=== PATIENT | female | born 1950 | race Caucasian/White ===

== ENCOUNTER 2023-05-09 15:41 | Emergency (ER) | payer OTHER, SELFPAY ==
[2023-05-09 15:49] VITALS: BP 145/66; BMI 24.1
--- NOTE | 2023-05-09 16:02 | ED.GENMED ---
History of Present Illness
General
Chief Complaint: Crisis Evaluation
Time Seen by Provider: 05/09/23 15:48
Travel History
Have you had any contact with someone who has COVID-19?: No
Do you have any symptoms of coronavirus? Fever > 100 degrees, chills, cough, shortness of breath, sore throat, loss of taste or smell, muscle aches, or headache?: No
History of Present Illness
History of Present Illness:
HPI: Patient states that she has been having problems with anxiety and depression. She is on Abilify. She denies history of any other psychiatric diagnoses. She has been feeling suicidal recently. She is upset with her living situation with her
granddaughters and daughter. Today she had thought of harming herself and thought about killing herself by drinking antifreeze. She did not proceed with this. She currently feels improved compared to earlier in the day and she feels safer
currently. She has also had other vague symptoms over the last 6 months including general unwell feeling.
EXAM:
GENERAL: Well appearing in no distress
HEENT: Slightly dry oral mucosa
CARDIOVASCULAR: No murmurs, normal heart rate and rhythm, No chest wall tenderness
PULMONARY: No respiratory distress, breath sounds are clear and equal
ABDOMEN: Soft with no peritoneal signs, no tenderness
NEUROLOGIC: Excellent strength all extremities, no coordination deficits
PSYCHIATRIC: Appropriate mental status, normal insight and judgement
EXTREMITIES: Nontender, no edema, moves all extremities equally
SKIN: No rash, no lesions
ED COURSE:
4:15 PM: I initially evaluated patient
NUMBER AND COMPLEXITY OF PROBLEMS ADDRESSED AT THE ENCOUNTER
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
� Acute Exacerbation and/or Progression of Chronic Illness: This is an acute problem
� Differential Diagnosis includes: Suicidal ideation, depression/anxiety, ethylene glycol injection very unlikely
AMOUNT AND/OR COMPLEXITY OF DATA TO BE REVIEWED AND ANALYZED
� I performed an independent evaluation of and my interpretation is:
EKG:
CT:
X-rays:
Laboratory Studies: White count and hemoglobin are normal, chemistries unremarkable, osmolality is 294. Osmolar gap is 8 (calculated is 288).
Other:
� Review of other/old records: There are no old records available for review in [facility]
� Clinical information was obtained by an independent historian: No old records available for review in [facility]
� Prescriptions/Medications Considered but not given:
� Further testing considered but not performed:
RISK OF COMPLICATIONS AND/OR MORBIDITY OR MORTALITY OF PATIENT MANAGEMENT
� Social determinants of health affecting care: Lives at home with family
� Discussion with other providers: Discussed with [facility] at 6:08 PM�they are bed searching.
� Escalation of care including admission/observation vs risk of discharge considered: The patient came in by ambulance. She was initially seen in crisis room. Labs will be obtained. Osmolar gap reassuring therefore no evidence
for ethylene glycol ingestion. Acetaminophen, salicylate, and alcohol undetected. [facility] is bed searching for a facility to go to as of 6:08 PM. I spoke to [facility] at around 7 PM, [facility]
8:30 PM.
Phy Exam
Physical Exam
Physical Exam:
See HPI
Course
Orders/Labs/Results
Orders:
Orders
05/09/23 15:58
Case Management Consult ONCE
Case Management Consult: Suicide Risk
05/09/23 16:51
Acetaminophen Urgent
Alcohol Urgent
Complete Blood Count/With Diff Urgent
Comprehensive Metabolic Panel Urgent
Salicylate Urgent
Serum Osmolality Urgent
05/09/23 17:55
Urinalysis Reflex To Culture Urgent
Date Specimen was Collected: 05/09/23
Time Specimen was Collected: 15:47
Urine Drug Abuse Screen Urgent
Date Specimen was Collected: 05/09/23
Time Specimen was Collected: 15:47
05/09/23 19:27
COVID-19 Antigen Stat
Source: Nasal Swab
Abnormal Lab Results
05/09/23
16:51
RBC 5.49 H 10^6/uL
(4.20-5.40)
Hct 47.2 H %
(37.0-47.0)
RDW 15.0 H %
(11.5-14.5)
MPV 10.6 H fL
(7.4-10.4)
Chloride 110 H mmol/L
(98-107)
Carbon Dioxide 21 L mmol/L
(22-30)
Glucose 117 H mg/dl
(70-99)
Salicylates < 1.0 L mg/dl
(2.0-20.0)
Acetaminophen < 10 L ug/ml
(10-30)
05/09/23 16:51
05/09/23 16:51
Vital Signs
Initial and Last Documented VS:
Initial Vital Signs
Pulse Resp BP Pulse Ox
58 18 145/66 98
05/09/23 15:49 05/09/23 15:49 05/09/23 15:49 05/09/23 15:49
Last Documented Vital Signs
Pulse Resp BP Pulse Ox
58 18 145/66 98
05/09/23 15:49 05/09/23 15:49 05/09/23 15:49 05/09/23 15:49
*Critical Care Note
Total Time (30-74mins, 75-104mins- exclusive of procedures): Not Applicable
ED Attending Note
-
Portions of this chart may have been created with voice recognition software.� Occasional wrong word or��sound alike� substitutions may have occurred due to the inherent limitations of voice recognition software.
Discharge Plan
Departure
Patient Disposition: Psych Facility
Date of Disposition: 05/09/23
Time of Disposition: 18:10
Discharge Problem:
Depression with suicidal ideation
Referrals:
UNKNOWN - PT DOES,NOT KNOW [Unknown Provider] -
Interventions
Interventions:
*Risk Screen - Suicide Last Done: 05/09/23 15:49
*General Assessment Last Done: 05/09/23 15:49
*Neglect/Abuse Screening Last Done: 05/09/23 15:49
*ED COVID-19 Vaccine History Last Done: 05/09/23 15:49
ED-Psychological Assessment Last Done: 05/09/23 16:00
[2023-05-09 16:58] LABS: % Eosinophils 0.6 % (0-6); % Immature Granulocytes 0.2 % (0-0.5); % Lymphocytes 21.8 % (20.5-51.1); % Monocytes 4.7 % (1.7-9.3); % Neutrophils 71.7 % (42.2-75.2); Absolute Basophils 0.1 10^3/uL (0-0.2); Absolute Eosinophils 0.1 10^3/uL (0-0.7); Absolute Lymphocytes 1.8 10^3/uL (1.2-3.4); Absolute Monocytes 0.4 10^3/uL (0.1-0.6); Hematocrit 47.2 % (37.0-47.0); Hemoglobin 15.8 g/dL (12.0-16.0); Mean Corp Hgb Conc. 33.5 g/dL (33.0-37.0); Mean Corpuscular Hgb 28.8 pg (27.0-31.0); Mean Platelet Volume 10.6 fL (7.4-10.4); Nucleated Red Blood Cells % 0 %; Platelet Count 242 10^3/uL (130-400); Red Blood Cell Count 5.49 10^6/uL (4.20-5.40); White Blood Cell Count 8.3 10^3/uL (4.8-10.8)
[2023-05-09 17:32] LABS: Alcohol None Detected
[2023-05-09 17:33] LABS: ALT (SGPT) 13 U/L (0-35); AST (SGOT) 23 U/L (14-36); Acetaminophen < 10 ug/ml (10-30); Albumin 4.3 g/dl (3.5-5.0); Alkaline Phosphatase 119 U/L (38-126); Blood Urea Nitrogen 10 mg/dl (7-17); Calcium 9.4 mg/dl (8.4-10.2); Carbon Dioxide 21 mmol/L (22-30); Chloride 110 mmol/L (98-107); Estimated Creatinine Clearance 65 ml/min; Glucose 117 mg/dl (70-99); Salicylate < 1.0 mg/dl (2.0-20.0); Sodium 139 mmol/L (135-145); Total Bilirubin 0.7 mg/dl (0.2-1.3); Total Protein 7.6 g/dl (6.3-8.2); eGFR > 60.00
[2023-05-09 17:40] LABS: Osmolality Serum 294 mOsm/kg (275-300)
[2023-05-09 20:18] LABS: COVID-19 Antigen Negative (Negative)
== END 2023-05-09 21:05 ==
LOC: EMR 15:41
PROVIDERS: EMERGENCY PHYSICIAN Emergency Medicine; FAMILY PHYSICIAN Family Medicine
DX: F32.A Depression, unspecified (principal); R45.851 Suicidal ideations; F41.9 Anxiety disorder, unspecified
CPT/HCPCS: 99283; 80053; 80143; 80179; 82077; 83930; 85025; 87811

== ENCOUNTER 2023-05-22 21:45 | Emergency (ER) | payer OTHER, SELFPAY ==
[2023-05-22 21:53] VITALS: BP 156/72
[2023-05-22 21:57] VITALS: BMI 22.9
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
[2023-05-22 22:20] LABS: Hematocrit 44.2 % (37.0-47.0); Hemoglobin 14.8 g/dL (12.0-16.0); Mean Corp Hgb Conc. 33.5 g/dL (33.0-37.0); Mean Corpuscular Hgb 28.7 pg (27.0-31.0); Mean Corpuscular Volume 85.8 fL (81.0-99.0); Mean Platelet Volume 9.8 fL (7.4-10.4); Platelet Count 264 10^3/uL (130-400); Red Blood Cell Count 5.15 10^6/uL (4.20-5.40); Red Cell Dist. Width 15.7 % (11.5-14.5); White Blood Cell Count 7.7 10^3/uL (4.8-10.8)
[2023-05-22 22:21] LABS: Urine Albumin Trace (Neg - Trace); Urine Bilirubin Negative (Negative); Urine Character Clear (Clear); Urine Color Yellow; Urine Glucose Negative (Negative); Urine Ketone Trace (Negative); Urine Leukocyte 2+ (Negative); Urine Nitrite Positive (Negative); Urine Occult Blood 1+ (Negative); Urine Specific Gravity 1.025 (<1.030); Urine Urobilinogen Negative (Neg - 1+)
[2023-05-22 22:26] LABS: Urine Squamous Cell >30 /LPF (Few)
[2023-05-22 22:27] LABS: Urine Bacteria Many (Negative); Urine White Cell >100 /HPF (0-5)
[2023-05-22 22:33] LABS: Blood Urea Nitrogen 14 mg/dl (7-17); Calcium 9.5 mg/dl (8.4-10.2); Carbon Dioxide 22 mmol/L (22-30); Chloride 106 mmol/L (98-107); Estimated Creatinine Clearance 57 ml/min; Glucose 99 mg/dl (70-99); Potassium 3.7 mmol/L (3.5-5.1); Sodium 139 mmol/L (135-145); eGFR > 60.00
[2023-05-22 22:36] LABS: Alcohol None Detected; Amphetamines Negative (Negative); Barbiturates Negative (Negative); Benzodiazepines Negative (Negative); Buprenorphine Negative (Negative); Cocaine Negative (Negative); Marijuana Negative (Negative); Methadone Negative (Negative); Methamphetamines Negative (Negative); Opiates Negative (Negative); Phencyclidine Negative (Negative); Tricyclic Antidepressants Negative (Negative)
[2023-05-22] MEDS: BACTRIM DS 800 MG/160 MG 1 TABLET PO (23:18)
[2023-05-23] MEDS: DESYREL 25 MG PO ×2 (01:49→22:23)
[2023-05-23 07:02] VITALS: BP 140/65
[2023-05-23 07:27] LABS: Absolute Neutrophils -Man Diff 3.6 10^3/uL (1.4-6.5); Atypical Lymphocytes 2 %; Band Neutrophils 1 % (0-3); Eosinophils 1 % (0-6); Lymphocytes 42 % (20-51); Monocytes 7 % (2-9); Segmented Neutrophils 47 % (42-75)
[2023-05-23 07:28] LABS: Normal RBC Morphology Yes; Platelets Checked Yes; Total Cells Counted 100
[2023-05-23] MEDS: BACTRIM DS 800 MG/160 MG 1 TABLET PO ×2 (08:30→20:51)
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
[2023-05-23 20:57] VITALS: BP 137/56
[2023-05-23] MEDS: MELATONIN 3 MG PO (21:45)
[2023-05-24] MEDS: BACTRIM DS 800 MG/160 MG 1 TABLET PO ×2 (08:05→20:17)
[2023-05-24 08:15] VITALS: BP 136/71
--- NOTE | 2023-05-24 10:30 | W.PN.UPDATE ---
Update Note
Progress Note Update
patient seen chart reviewed. spoke w dr keller. the patient continues to be pleasant and cooperative. she is awaiting psych bed for depression however cxr suggesting developing pneumonia. asked dr keller to advise. she is already on bactrim for uti.
she is not sleeping . increase trazodone to 50 mg q hs. she asks re antidepressant. i had been holding off to allow the treating psych facility to prescribe after assessement. if she is not able to go to psych today will discuss starting an
antidepressant. she is not suicidal at this moment as she feels supportive in the milieu
[2023-05-24] MEDS: TYLENOL 650 MG PO (12:52)
[2023-05-24 20:15] VITALS: BP 141/73
[2023-05-24] MEDS: DESYREL 50 MG PO (22:32)
[2023-05-24] MEDS: MELATONIN 3 MG PO (22:32)
[2023-05-24 22:35] VITALS: BP 141/69
[2023-05-25] MEDS: BACTRIM DS 800 MG/160 MG 1 TABLET PO (08:08)
[2023-05-25 08:11] VITALS: BP 141/72
--- NOTE | 2023-05-25 10:36 | ED.CRISIS ---
ED Crisis Note
ED Crisis Note
Subjective:
The patient has an occasional cough. However we have not heard her cough much at all. She states that she smoked a pack a day for several decades up until a month ago.
Objective:
The patient is well-appearing with clear lung sounds. Her white count is normal and she is afebrile. Doubt true acute pneumonia.
Assessment/Plan:
I reviewed chest x-ray readings. I do not feel the patient requires hospitalization for pneumonia and could take oral antibiotics. Currently is already on antibiotics for urinary tract infection. The patient could also have malignancy workup as
an outpatient, I highly doubt any significant acute issue at this time that requires any hospitalization.
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
[2023-05-25] MEDS: ZOLOFT 25 MG PO (12:14)
[2023-05-25] MEDS: OMNICEF 300 MG PO (20:07)
[2023-05-25] MEDS: DESYREL 50 MG PO (22:47)
[2023-05-25] MEDS: MELATONIN 3 MG PO (22:47)
[2023-05-25 22:51] VITALS: BP 175/63
[2023-05-26 07:15] VITALS: BP 140/72
--- NOTE | 2023-05-26 08:56 | W.PN.UPDATE ---
Update Note
Progress Note Update
patient seen chart reviewed. david is sad that her relationship with her d and grandson are such that 'i feel happier in this 2x4 room than i do at home.' she has started w zoloft. some gi distress. advised her to take it w food. she does feel it
helped her when she took it in the hospital so will continue w it for now. if gi upset continues may need to try an alternative. she does not appear to have an upper respiratory infection at this point. i have not seen her coughing in any of the
visits w her and she does not appear physically ill. crisis workers continue to try to find a psych bed for her.
[2023-05-26] MEDS: ZOLOFT 25 MG PO (09:09)
[2023-05-26] MEDS: OMNICEF 300 MG PO (09:09)
[2023-05-26 11:13] LABS: COVID-19 Antigen Negative (Negative)
== END 2023-05-26 16:55 ==
LOC: EMR 21:45
PROVIDERS: Physician Assistant; EMERGENCY PHYSICIAN Emergency Medicine; OTHER PHYSICIAN Psychiatry & Neurology Psychiatry
DX: N39.0 Urinary tract infection, site not specified (principal); Z87.891 Personal history of nicotine dependence; R45.851 Suicidal ideations; I10 Essential (primary) hypertension; F41.9 Anxiety disorder, unspecified
CPT/HCPCS: 99285; 70450; 71046; 80048; 80306; 81003; 81015; 82077; 85025; 87077; 87086; 87186; 87811

== ENCOUNTER 2023-10-10 11:30 | Emergency (ER) | payer OTHER, SELFPAY ==
[2023-10-10 11:30] VITALS: BMI 27.5
[2023-10-10 12:02] VITALS: BP 211/100
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
[2023-10-10 13:11] LABS: % Basophils 1.1 % (0-2); % Eosinophils 9.5 % (0-6); % Immature Granulocytes 0.2 % (0-0.5); % Lymphocytes 29.2 % (20.5-51.1); % Monocytes 5.6 % (1.7-9.3); % Neutrophils 54.4 % (42.2-75.2); Absolute Basophils 0.1 10^3/uL (0-0.2); Absolute Eosinophils 0.8 10^3/uL (0-0.7); Absolute Lymphocytes 2.5 10^3/uL (1.2-3.4); Absolute Monocytes 0.5 10^3/uL (0.1-0.6); Absolute Neutrophils 4.6 10^3/uL (1.4-6.5); Hematocrit 39.1 % (37.0-47.0); Hemoglobin 12.5 g/dL (12.0-16.0); Mean Corpuscular Volume 93.8 fL (81.0-99.0); Mean Platelet Volume 10.3 fL (7.4-10.4); Nucleated Red Blood Cells % 0 %; Platelet Count 233 10^3/uL (130-400); Red Blood Cell Count 4.17 10^6/uL (4.20-5.40); Red Cell Dist. Width 13.2 % (11.5-14.5); White Blood Cell Count 8.4 10^3/uL (4.8-10.8)
[2023-10-10 13:26] LABS: Blood Urea Nitrogen 17 mg/dl (7-17); Calcium 9.2 mg/dl (8.4-10.2); Carbon Dioxide 27 mmol/L (22-30); Chloride 111 mmol/L (98-107); Estimated Creatinine Clearance 64 ml/min; Glucose 81 mg/dl (70-99); Potassium 4.1 mmol/L (3.5-5.1); Sodium 143 mmol/L (135-145); eGFR > 60.00
[2023-10-10 13:27] LABS: Alcohol None Detected
[2023-10-10 13:54] LABS: TSH Reflex To Free T4 3.76 uIU/ml (0.47-4.68)
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
[2023-10-10 16:03] VITALS: BP 172/91
== END 2023-10-10 16:06 | disposition home or self-care (01) ==
LOC: EMR 11:30
PROVIDERS: EMERGENCY PHYSICIAN Emergency Medicine; OTHER PHYSICIAN Psychiatry & Neurology Psychiatry
DX: Z02.79 Encounter for issue of other medical certificate (principal); S40.022A Contusion of left upper arm, initial encounter; Y04.2XXA Assault by strike against or bumped into by another person, initial encounter; Y07.45 Grandchild, perpetrator of maltreatment and neglect; R03.0 Elevated blood-pressure reading, without diagnosis of hypertension; F32.A Depression, unspecified; F60.9 Personality disorder, unspecified; Z63.8 Other specified problems related to primary support group; E78.00 Pure hypercholesterolemia, unspecified
CPT/HCPCS: 99283; 80048; 82077; 84443; 85025

== ENCOUNTER → 2024-02-13 08:58 | Outpatient (REF) | payer OTHER, SELFPAY | LOC: RAD 08:58 | PROVIDERS: ATTENDING PHYSICIAN Family Medicine | DX: M51.369 Other intervertebral disc degeneration, lumbar region without mention of lumbar back pain or lower extremity pain (principal); R06.00 Dyspnea, unspecified | CPT/HCPCS: 71046; 72110 ==

== ENCOUNTER → 2024-07-03 14:22 | Outpatient (REF) | payer OTHER, SELFPAY | LOC: WDC 14:22 | PROVIDERS: ATTENDING PHYSICIAN Nurse Practitioner Adult Health | DX: Z12.31 Encounter for screening mammogram for malignant neoplasm of breast (principal); Z78.0 Asymptomatic menopausal state; Z87.891 Personal history of nicotine dependence | CPT/HCPCS: 77063; 77067; 77080 ==

== ENCOUNTER → 2024-07-30 10:08 | Outpatient (REF) | payer OTHER, SELFPAY | LOC: WDC 10:08 | PROVIDERS: ATTENDING PHYSICIAN Nurse Practitioner Adult Health | DX: R92.8 Other abnormal and inconclusive findings on diagnostic imaging of breast (principal) | CPT/HCPCS: 76642 ==

== ENCOUNTER → 2024-08-08 07:47 | Outpatient (REF) | payer OTHER, SELFPAY ==
--- NOTE | 2024-08-08 13:41 | OID.BR.INTR ---
[facility] Breast Navigator - Initial
- -
Date of Contact: 08/08/24
Met with patient. Patient and friend given written information on navigator services available at [facility]. Will follow up as needed per protocol.
== END ==
LOC: WDC 07:47
PROVIDERS: ATTENDING PHYSICIAN Nurse Practitioner Adult Health
DX: N63.21 Unspecified lump in the left breast, upper outer quadrant (principal)
CPT/HCPCS: 88305; 19083; 88341; 88342; A4648

== ENCOUNTER → 2024-10-21 12:23 | Outpatient (REF) | payer OTHER, SELFPAY | LOC: WDC 12:23 | PROVIDERS: ATTENDING PHYSICIAN Surgery; FAMILY PHYSICIAN Nurse Practitioner Adult Health | DX: N60.99 Unspecified benign mammary dysplasia of unspecified breast (principal) | CPT/HCPCS: 19285; A4648 ==

== ENCOUNTER 2024-10-22 06:09 | Day surgery (SDC) | payer OTHER, SELFPAY ==
[2024-10-14 08:55] LABS: Hematocrit 40.3 % (37.0-47.0); Hemoglobin 13.1 g/dL (12.0-16.0); Mean Corp Hgb Conc. 32.5 g/dL (33.0-37.0); Mean Corpuscular Volume 92.4 fL (81.0-99.0); Platelet Count 197 10^3/uL (130-400); Red Cell Dist. Width 13.3 % (11.5-14.5)
[2024-10-14 09:58] LABS: ALT (SGPT) 21 U/L (0-35); AST (SGOT) 24 U/L (14-36); Albumin 4.3 g/dl (3.5-5.0); Alkaline Phosphatase 104 U/L (38-126); Blood Urea Nitrogen 12 mg/dl (7-17); Calcium 9.0 mg/dl (8.4-10.2); Carbon Dioxide 25 mmol/L (22-30); Chloride 111 mmol/L (98-107); Glucose 92 mg/dl (70-99); Potassium 4.6 mmol/L (3.5-5.1); Sodium 142 mmol/L (135-145); Total Protein 6.9 g/dl (6.3-8.2); eGFR > 60.00
[2024-10-14 10:06] LABS: Prealbumin (Transthyretin) 21.7 mg/dl (17.6-36.0)
[2024-10-14 10:20] LABS: Vitamin D, 25-OH*** 32.4 ng/mL (30-80)
[2024-10-14 14:15] VITALS: BMI 28.9
[2024-10-22] VITALS (9 sets, daily range): BP systolic 106–131; BP diastolic 56–116; BMI 28.9
[2024-10-22] MEDS: TYLENOL 1000 MG PO (09:20)
[2024-10-22] MEDS: NORMOSOL-R/PLASMALYTE-A 1000 IV (09:21)
[2024-10-22] MEDS: NORMOSOL-R/PLASMALYTE-A 500 IV (11:56)
[2024-10-22 11:58] LABS: Hematocrit 39.1 % (37.0-47.0); Hemoglobin 12.8 g/dL (12.0-16.0); Mean Corp Hgb Conc. 32.7 g/dL (33.0-37.0); Mean Corpuscular Volume 89.3 fL (81.0-99.0); Nucleated Red Blood Cells % 0 %; Platelet Count 221 10^3/uL (130-400); Red Cell Dist. Width 13.4 % (11.5-14.5)
--- NOTE | 2024-10-22 12:19 | CON.CAR ---
Addendum entered and electronically signed by Francis Rodriguez MD 10/22/24 14:03:
I saw and examined the patient.
The FARM IMPLEMENT ENGINE MECHANIC's note was reviewed and I agree with the note.
Comment: But I will add that she has been having episodic significant brief dizzy spells. While awake and talking her heart rate varied from sinus bradys in the low 40's to 50-60s and then AFib in the 130s.
Imp/Plan:
Sick Sinus Syndrome
PAF with RVR, minimal symptoms form the AFib
[id number] is 2 at 74 so no anticoagulation but at age 76 will ask her to begin oral anticoagulation.
I do not favor telemetry as we have more than enough data to confirm symptomatic sick sinus syndrome.
I have advised her to have a pacemaker placed and then it will be safe to add BB to control the fast AFib. If needed we can progress to ablation.
All risks/benefits/alternatives reviewed, her friend asked good questions. All questions answered.
OK for home and elective outpatient pacemaker placement.
Original Note:
Consultation
Consultation Request
Date/Time Consultation Requested: 10/22/2024 11:20
Date/Time Consultation Performed: 10/22/2024 11:50
Requesting Provider: Dr. Marks
Performing Provider: RICCI Irvin for Dr. Rodriguez
Reason for Consultation: Atrial fibrillation, new onset
Medical History
-
Chief Complaint: Left breast mass
History of Present Illness:
Kaye Mckeon is a 74-year-old female with dyslipidemia, anxiety, depression, and endometriosis who presented today for a lumpectomy. She had imaging which detected an abnormal mass in the left breast and then underwent biopsy showing a papilloma with
atypical ductal hyperplasia. The plan was for her to undergo localized left lumpectomy and possible oncoplastic closure. With the induction of anesthesia, she had atrial fibrillation. This is a new diagnosis for her. Surgery was aborted.
Cardiology was consulted for rhythm management.
Past Medical History
Past Medical History: Hypercholesterolemia and Other (Endometriosis)
Past Surgical History: Brain (Tumor removal [2005]) and Gynecological
Social History
Tobacco: Former Smoker
Family History
Family History: Reviewed & Not Pertinent
Allergies / Home Medications
Allergy/AdvReac Type Severity Reaction Status Date / Time
No Known Allergies Allergy Verified 10/22/24 08:56
�Medication �Instructions �Recorded �Confirmed �Type
alprazolam 0.5 mg tablet 0.5 mg PO DAILY 10/15/24 10/22/24 History
atorvastatin 40 mg tablet 40 mg PO QPM 10/15/24 10/22/24 History
bupropion HCl 150 mg 24 hr tablet, 150 mg PO DAILY 10/15/24 10/22/24 History
extended release
deutetrabenazine 12 mg 12 mg PO DAILY 10/15/24 10/22/24 History
tablet,extended release 24 hr
(Austedo XR)
mirabegron 50 mg tablet,extended 50 mg PO DAILY 10/15/24 10/22/24 History
release 24 hr (Myrbetriq)
sertraline 50 mg tablet 50 mg PO DAILY 10/15/24 10/22/24 History
Review of Systems
-
History Source: Patient
All other systems: Negative unless noted
Constitutional: No Symptoms
EENT: No Symptoms
Respiratory: No Symptoms
Cardiac: No Symptoms
Abdomen/GI: No Symptoms
: No Symptoms
Musculoskeletal: No Symptoms
Skin: No Symptoms
Neurological: No Symptoms
Endocrine: No Symptoms
Hematologic/Lymphatic: No Symptoms
Physical Exam
Vital Signs
Temp Pulse Resp BP Pulse Ox
97.5 F 59 17 112/56 97
10/22/24 09:09 10/22/24 11:45 10/22/24 11:45 10/22/24 11:45 10/22/24 11:45
Lab Results
10/22/24 11:45
Physical Exam
General: Well Developed, Well Nourished and No Apparent Distress
HEENT: Normocephalic, Anicteric and Moist Mucous Membranes
Respiratory: Clear and Non Labored Respirations
Cardiac: S1/S2 and Regular Rhythm; Negative Peripheral Edema
Breast: Deferred by me
GI: Soft, Non Tender, Non Distended and Normal Bowel Sounds
Rectal: Deferred by Provider
Genito-urinary: No Costovertebral Tender
Musculoskeletal: No Clubbing and No Cyanosis
Skin: Warm and Dry
Neuro: AO x 3
Hematologic/Lymphatic: No Lymphadenopathy
Psych: Calm
Impression / Plan
-
I/P: 74F with dyslipidemia, anxiety, depression, and endometriosis who presented today for a lumpectomy. She had imaging which detected an abnormal mass in the left breast and then underwent biopsy showing a papilloma with atypical ductal
hyperplasia. The plan was for her to undergo localized left lumpectomy and possible oncoplastic closure. With the induction of anesthesia, she had atrial fibrillation.
Paroxysmal atrial fibrillation
- Back in sinus rhythm, she endorses palpitations, heart rate 60s
- No palpitations at home
- Oral Anticoagulation: None prior to arrival
- [id number]: Score 2 (age 65-74, female gender)
Left breast papilloma
- Lumpectomy with oncoplastic closure aborted today
- Being managed by Dr. Marks
Dyslipidemia, on atorvastatin
Anxiety/depression
Data Reviewed
-
EKG: Report Reviewed by me (Sinus rhythm, rate 60)
Labs: Labs Reviewed by me
Old Records: Reviewed
[2024-10-22 12:20] LABS: Blood Urea Nitrogen 16 mg/dl (7-17); Calcium 9.0 mg/dl (8.4-10.2); Carbon Dioxide 23 mmol/L (22-30); Chloride 113 mmol/L (98-107); Estimated Creatinine Clearance 63 ml/min; Glucose 89 mg/dl (70-99); Magnesium 2.1 mg/dl (1.6-2.3); Potassium 4.2 mmol/L (3.5-5.1); Sodium 140 mmol/L (135-145); eGFR > 60.00
--- NOTE | 2024-10-30 11:19 | OR.RPT ---
Operative Report
Operative Report
Date of procedure: 10/22/2024
Surgeon: Selina
Preoperative diagnosis: left atypical ductal hyperplasia
Post operative diagnosis: left atypical ductal hyperplasia
Procedure: Aborted left localized lumpectomy
The patient is a 74-year-old female who had experienced an interval change on screening mammography leading to a biopsy showing atypical ductal hyperplasia. She presented for ;ocalized lumpectomy. On the day prior to the procedure she presented to
the [facility] center and have it Jessica hydrostatic tester reflector placed in the appropriate position.
On the day of surgery she presented to same-day surgical services unit where she was prepped and verified site and procedure. DVT and antibiotic prophylaxis were provided. She was taken to the operating room and in the supine position intravenous
sedation was administered. The home restoration service supervisor noticed that the patient was in atrial fibrillation and had a rate varying from the 140s to 170s. She was hemodynamically stable but the decision was made jointly to abandon the procedure and she was
transferred to the recovery room and will be seen by the cardiology service.
== END 2024-10-22 12:53 | disposition home or self-care (01) ==
LOC: SDS 06:09
PROVIDERS: Student in an Organized Health Care Education/Training Program; ATTENDING PHYSICIAN Surgery; FAMILY PHYSICIAN Nurse Practitioner Adult Health
DX: N60.92 Unspecified benign mammary dysplasia of left breast (principal); I48.0 Paroxysmal atrial fibrillation; Z53.8 Procedure and treatment not carried out for other reasons
CPT/HCPCS: 19301; 36415; 80048; 80053; 82306; 83735; 84100; 84134; 84443; 85025; 85027; 93005

== ENCOUNTER → 2024-10-24 10:57 | Outpatient (REF) | payer OTHER, SELFPAY | LOC: HWRCS 10:57 | PROVIDERS: ATTENDING PHYSICIAN Internal Medicine Cardiovascular Disease; FAMILY PHYSICIAN Nurse Practitioner Adult Health | DX: I48.0 Paroxysmal atrial fibrillation (principal); I49.5 Sick sinus syndrome | CPT/HCPCS: 93306 ==

== ENCOUNTER 2024-10-25 08:59 | Day surgery (SDC) | payer OTHER, SELFPAY ==
[2024-10-25] VITALS (9 sets, daily range): BP systolic 93–121; BP diastolic 52–87; BMI 28.3
--- NOTE | 2024-10-25 14:25 | ITS.CL.PACE ---
Center Line Cutter Operator - Pacemaker Implant
Pacemaker Implant
Procedure Report:
Date of Procedure: October 25, 2024.
Procedure: Pacemaker Implantation. Right upper extremity venogram.
Indication: The pacemaker is for the treatment of nonreversible symptomatic bradycardia due to sinus node dysfunction. Know paroxysmal atrial fibrillation.
Performing physician: Francis Rodriguez MD, [facility].
Implants:
Pulse Generator: Medtronic; Model# [id number]; Serial# [id number].
RA Lead: Medtronic; Model# 5076-45cm; Serial# [id number].
RV Lead: Medtronic; Model# 3830-69cm; Serial# [id number].
Technique: A time out was performed. A 10 mL upper extremity venogram demonstrated patent right axillary, cephalic, and subclavian veins. The procedure site was identified. The patient was anesthetized by the anesthesia service. Preoperative
cefazolin was administered. The patient was prepped and draped in the usual fashion. Local anesthetic was applied to the right prepectoral subcutaneous tissue. A 3 inch incision was made along the right deltopectoral groove. Dissection was carried
to the fascia. The right cephalic vein was easily isolated and proximal and distal control with 2-0 Vicryl suture. Using a micropuncture needle to access the cephalic vein under direct visualization a wire was advanced into the central circulation.
A 7 Fr introducer was placed over the 0.35 J-wire. A second 0.35 J-wire was not able to be advanced through the 7 Swiss introducer. A Glidewire could also not be advanced. I abandoned cephalic access. The right axillary vein was accessed twice with
percutaneous micropuncture set without any difficulty. The leads were introduced with hemostatic peel away introducer sheaths. The RV lead was placed using utilizing the [employer] His delivery catheter ([id number]) that was advanced to the left bundle
area as confirmed by fluoroscopy in the BULGARIAN and LARSEN projections. The lead tip was advanced. PVC morphology was reviewed. When a satisfactory location was identified (W pattern observed) the lead was screwed into position with serial turns. Septal
engagement was confirmed with gentle torque applied to the guide sheath. After each series of turns (2-3) unipolar sensed morphology and impedance, and paced morphology of V1 was analyzed. The lead was further advanced until satisfactory morphology
and electrical characteristics were confirmed. The RV lead was placed in the first location evaluated. The long guiding sheath was cut and removed from the RV without change in lead position, impedance, sensing, or capture. The ventricular lead was
secured to the pectoralis muscle and fascia with two 0-silk sutures. The atrial lead was placed in the right atrial appendage. 8 volt pacing from each lead did not capture the diaphragm. The atrial leads was secured to the pectoralis muscle and
fascia. A subcutaneous pocket was created with Bovie cautery. Hemostasis was excellent. The leads were appropriately attached to the device. The pocket was irrigated with antibiotic solution. The device and leads were placed in the pocket. The
incision was closed in three layers with absorbable suture. Steri-strips and a silver impregnated dressing were placed. Estimated blood loss was 10 ml. There were no complications. Fluoroscopy time 6.7 minutes and DAP 1.75 GyCM2. The device was
then interrogated after skin closure.
Lead Analysis:
RA lead: P: 1.4 mV; Threshold: 1.25 V @ 0.4 ms; Impedance: 627 ohms.
RV lead: R: 10.5 mV; Threshold: 5.1 V @ 0.4 ms; Impedance: 722 ohms.
Paced QRS characteristics: V1 has Qr morphology and measures 110 ms in duration, LVAT (stim to peak V5/V6) is 47 ms, and R peak V1 to R peak V6 is 47 ms.
Paced QRS has similar characteristics in unipolar and bipolar configurations.
Final Programming: MVP (AAIR to DDDR) 60-130 bpm.
Conclusion: Uncomplicated Medtronic pacemaker implant. The pacing system is MRI conditional.
Recommendation: Routine post pacemaker care.
cc: Shahida Marks MD and RICCI Oneil.
[2024-10-25] MEDS: TYLENOL 650 MG PO (15:06)
[2024-10-25] MEDS: TOPROL XL 25 MG PO (15:34)
--- NOTE | 2024-10-25 15:56 | W.PN.UPDATE ---
Update Note
Progress Note Update
Pt seen post PPM implant. Right sided device with aquacel/pressure dressing CDI, no ht/bleeding. Post EKG APaced w/underlying sinus rhythm, PACs as before. Post CXR w/stable lead position, no pneumothorax. Rates noted up to 120-130s just now, start
toprol xl 25mg daily with first dose now. Pt is asymptomatic and had been having these runs pre-procedure. Her rhythm varied with AFib/flutter and SR/ST, with a [id number]=7 (age, gender) and is low risk. Per Dr. Rodriguez will hold off on OAC/aspirin
at this time. Activity limitations post device reviewed w/patient, all questions answered. Incision check next week at [facility]. Home later today if device site/tele remain stable.
[2024-10-25] MEDS: ANCEF 5 IV (16:29)
== END 2024-10-25 16:47 | disposition home or self-care (01) ==
LOC: CATH 08:59
PROVIDERS: ATTENDING PHYSICIAN Internal Medicine Cardiovascular Disease; FAMILY PHYSICIAN Nurse Practitioner Adult Health
DX: I49.5 Sick sinus syndrome (principal); I48.0 Paroxysmal atrial fibrillation; E78.5 Hyperlipidemia, unspecified; F41.9 Anxiety disorder, unspecified; F32.A Depression, unspecified
CPT/HCPCS: 33208; 71045; 93005; C1769; C1785; C1887; C1892; C1898; Q9967

== ENCOUNTER 2024-12-20 06:12 | Day surgery (SDC) | payer OTHER, SELFPAY ==
[2024-12-20] VITALS (8 sets, daily range): BP systolic 95–132; BP diastolic 57–86; BMI 29.1
[2024-12-20] MEDS: TYLENOL 1000 MG PO (06:52)
[2024-12-20] MEDS: NORMOSOL-R/PLASMALYTE-A 1000 IV (07:05)
--- NOTE | 2024-12-20 07:06 | W.SUR.PREOP ---
Pre-Operative Surgical Note
-
I have examined this patient prior to the performance of the scheduled procedure.
The patient's condition is unchanged from the time of the current History and
Physical and the patient is able to undergo the scheduled procedure.
--- NOTE | 2024-12-20 08:08 | W.IMMPOSTOP ---
Surgical Immed Post Op Note
-
Primary Surgeon: Selina
Assisting Surgeon: None
Pre-op Diagnosis: left breast papilloma with atypia
Post-op Diagnosis: same
Procedure Performed: left localized lumpectomy
Anesthesia Type: TIVA
Specimen / Cultures: Left lumpectomy
Estimated Blood Loss: 2cc
Complications: none
Operative Findings: clip and reflector in specimen
--- NOTE | 2024-12-20 08:09 | OR.RPT ---
Operative Report
Operative Report
Date of procedure: 12/20/2024
Surgeon: Selina
Preoperative diagnosis: Left breast papilloma with atypia
Postoperative diagnosis: Same
Procedure: Left localized lumpectomy
The patient is a 74-year-old female who had an image detected left breast mass that led to an ultrasound-guided aspiration and biopsy. This revealed atypical cells and a papilloma and she presents for localized lumpectomy. Jessica clinical education assistant reflector had
been placed in the left breast at the appropriate area previously and an attempt was made to perform surgery however a few weeks ago when inducing sedation the patient went into atrial fibrillation and the case was aborted. She subsequently saw
cardiology and needed a pacemaker to be inserted. She presents now after cardiac clearance.
On the day of the procedure the patient presented to the same-day surgical services unit. She verified site and procedure and DVT and antibiotic prophylaxis were provided. She was taken to the operating room and in the supine position intravenous
sedation was delivered. The left breast was prepped and draped in the usual sterile fashion and all team members performed an appropriate timeout procedure.
Tissues were anesthetized with 1% lidocaine plain and a lateral circumareolar incision was made sharply with the blade overlying the area of highest Jessica clinical education assistant signal. Dissection was carried down to the appropriate area using the cautery and a wide
lumpectomy was performed. Time out of body was noted and the specimen was oriented for the pathologist. Specimen radiography confirmed the presence of mass and clip within it. Hemostasis was verified. Marcaine 0.5% plain was instilled and the
wound was closed using simple interrupted 3-0 plain on deep intermediate and subcutaneous tissue and skin was closed with a running subcuticular 4-0 Monocryl. Surgical glue and sterile compressive dressing were applied. All sponge needle and
instrument counts were correct and the patient was transferred back to same-day surgical services for recovery
()
== END 2024-12-20 10:25 | disposition home or self-care (01) ==
LOC: SDS 06:12
PROVIDERS: ATTENDING PHYSICIAN Surgery
DX: D24.2 Benign neoplasm of left breast (principal); Z95.0 Presence of cardiac pacemaker
CPT/HCPCS: 19301; 76098; 88307; 88341; 88342; 88360; A4648; L8000

== ENCOUNTER → 2025-01-02 15:53 | Outpatient (REF) | payer OTHER, SELFPAY | LOC: HWRCS 15:53 | PROVIDERS: ATTENDING PHYSICIAN Internal Medicine Cardiovascular Disease; FAMILY PHYSICIAN Nurse Practitioner Adult Health | DX: I48.0 Paroxysmal atrial fibrillation (principal); I49.5 Sick sinus syndrome | CPT/HCPCS: 93306 ==

== ENCOUNTER → 2025-01-16 12:48 | Outpatient (REF) | payer OTHER, SELFPAY ==
[2025-01-16 13:33] LABS: Hematocrit 43.1 % (37.0-47.0); Hemoglobin 13.8 g/dL (12.0-16.0); Mean Corp Hgb Conc. 32.0 g/dL (33.0-37.0); Mean Corpuscular Volume 91.1 fL (81.0-99.0); Nucleated Red Blood Cells % 0 %; Platelet Count 284 10^3/uL (130-400); Red Cell Dist. Width 13.3 % (11.5-14.5)
[2025-01-16 13:54] LABS: ALT (SGPT) 19 U/L (0-35); AST (SGOT) 24 U/L (14-36); Albumin 4.5 g/dl (3.5-5.0); Alkaline Phosphatase 121 U/L (38-126); Blood Urea Nitrogen 13 mg/dl (7-17); Calcium 9.5 mg/dl (8.4-10.2); Carbon Dioxide 24 mmol/L (22-30); Chloride 110 mmol/L (98-107); Glucose 89 mg/dl (70-99); Potassium 4.8 mmol/L (3.5-5.1); Sodium 142 mmol/L (135-145); Total Protein 7.4 g/dl (6.3-8.2); eGFR > 60.00
== END ==
LOC: REG 12:48
PROVIDERS: ATTENDING PHYSICIAN Nurse Practitioner Adult Health
DX: R60.0 Localized edema (principal); M79.671 Pain in right foot; I48.0 Paroxysmal atrial fibrillation; Z79.01 Long term (current) use of anticoagulants; I10 Essential (primary) hypertension
CPT/HCPCS: 36415; 73630; 80053; 85025

== ENCOUNTER → 2025-04-02 13:38 | Outpatient (REF) | payer OTHER, SELFPAY | LOC: MRI 13:38 | PROVIDERS: ATTENDING PHYSICIAN Nurse Practitioner; FAMILY PHYSICIAN Nurse Practitioner Adult Health | DX: I48.91 Unspecified atrial fibrillation (principal) | CPT/HCPCS: 70553; A9575 ==